=== PATIENT | female | born 1960 | race Hispanic/Latino ===

== ENCOUNTER → 2024-06-02 | Outpatient (CLI) | payer MEDICARE, OTHER ==
[2024-06-02 12:24] LABS: BASOPHILS # (AUTO) 0.05 K/uL (0.00-0.20); BASOPHILS % (AUTO) 0.9 % (0.0-5.0); EOSINOPHILS % (AUTO) 1.8 % (0.0-8.0); HEMATOCRIT 37.5 % (36-48); IMMATURE GRANULOCYTE ABSOLUTE 0.02 K/uL (0-1); LYMPHOCYTES # (AUTO) 1.9 K/uL (1.0-4.8); MEAN CORPUSCULAR HEMOGLOBIN 29.9 pg (27.0-33.0); MEAN CORPUSCULAR HGB CONC 32.8 g/dL (32.0-36.0); MEAN CORPUSCULAR VOLUME 91.2 fL (79-99); MONOCYTES # (AUTO) 0.3 K/uL (0.1-1.0); MONOCYTES % (AUTO) 5.8 % (3.0-13.0); NEUTROPHILS # (AUTO) 3.3 K/uL (1.8-7.7); NEUTROPHILS % (AUTO) 57.1 % (40.0-77.0); PLATELET COUNT (AUTO) 226 K/uL (130-400); RED BLOOD CELL COUNT(AUTO) 4.11 MIL/uL (4.00-5.50); WHITE BLOOD COUNT (AUTO) 5.7 K/uL (4.8-10.8)
[2024-06-02 12:34] LABS: INR 0.99 (0.85-1.15); PROTHROMBIN TIME 10.7 SEC (9.6-11.6)
[2024-06-02 12:35] LABS: PARTIAL THROMBOPLASTIN TIME 29.9 SEC (26.3-35.5)
[2024-06-02 12:36] LABS: CREATININE 0.6 mg/dL (0.5-1.0); POTASSIUM 4.2 mmol/L (3.5-5.1)
== END | disposition home or self-care (01) ==
LOC: RAH 11:47
PROVIDERS: ATTEND Family Medicine
DX: Z01.818 Encounter for other preprocedural examination (principal); E78.00 Pure hypercholesterolemia, unspecified; E66.09 Other obesity due to excess calories; M20.11 Hallux valgus (acquired), right foot; I70.0 Atherosclerosis of aorta; M47.815 Spondylosis without myelopathy or radiculopathy, thoracolumbar region
CPT/HCPCS: 36415; 71046; 80048; 85025; 85610; 85730

== ENCOUNTER 2024-06-22 05:51 | Day surgery (SDC) | payer MEDICARE, OTHER ==
[2024-06-20 14:03] VITALS: BP 154/77; PULSE 67; RESP 15; TEMP 97.4
[2024-06-22] VITALS (18 sets, daily range): BP systolic 109–158; BP diastolic 75–99; PULSE 63–85; RESP 10–16; TEMP 96.8–97.8
[~2024-06-22] VITALS: Ht 162.6 cm; Wt 69.9 kg
[~2024-06-22 05:51] MED LIST: IBUP-2784 PO; MAGN400C PO; VITAMIN D PO
[2024-06-22] MEDS: LACTATED RINGERS 1000ML 1,000 ML IV ONE (06:22)
[2024-06-22] MEDS ORDERED: BUPIvacaine/PF 0.25% 30ML VIAL IJ ONE (06:44)
[2024-06-22] MEDS ORDERED: MIDAZOLAM HCL 1 MG/ML 2ML VIAL ONE (06:48)
[2024-06-22] MEDS ORDERED: rocuRONium bROMide 10MG/1ML 5ML VL ONE (06:48)
[2024-06-22] MEDS ORDERED: proPOFol 10 MG/ML 20ML VIAL IV ONE (06:48)
[2024-06-22] MEDS ORDERED: FENTanyl CITRate PF 50 MCG/1 ML 2ML VIAL ONE ×2 (06:48→07:36)
[2024-06-22] MEDS: VANCOMYCIN 1G VIAL IVPB ONE (07:10)
[2024-06-22] MEDS ORDERED: VANCOMYCIN 1G/250ML KIT 250 ML IV ONE (07:22)
[2024-06-22] MEDS ORDERED: ondanSETRON 4MG INJ ONE (07:32)
[2024-06-22] MEDS ORDERED: GLYCOPYRROLATE 0.2 MG/ML 5 ML VIAL ONE (07:40)
[2024-06-22] MEDS ORDERED: NEOSTIGMINE METHYLSULFATE 1MG/ML IV ONE (07:40)
[2024-06-22] MEDS ORDERED: phenylEPHRINE HCL 10 MG/ML 1ML VIAL IV ONE (07:54)
[2024-06-22] MEDS: MEPERIDINE-PF 25 MG/ML SYG ONE (09:30)
--- NOTE | 2024-06-22 09:37 | OP ---
Operative Note: DATE OF PROCEDURE: 06/22/24 SURGEON: BEN MYERS DPM DERMATOLOGIST AND DERMATOPATHOLOGIST: Estrella ANESTHESIA: General PREOPERATIVE DIAGNOSIS: Hallux valgus right foot POSTOPERATIVE DIAGNOSIS: Same Findings: Deformity reduction achieved PROCEDURE: Correction of hallux valgus deformity with tarsometatarsal joint arthrodesis ESTIMATED BLOOD LOSS: Minimal INDICATIONS: Positive valgus deformity is becoming painful and did not respond to conservative measures Injectables: 20 cc of 0.25% Marcaine plain Specimen: None Materials: [employer] set 3.5 mm cortical screws and a4 hole plate, 3-0 Vicryl, 4-0 Vicryl, 4 Monocryl Hemostasis: Pneumatic thigh tourniquet at 275 mm Hg for 90 minutes DESCRIPTION OF PROCEDURE: The patient was brought into the operating room and placed on table in a supine position and general anesthesia was induced. Pneumonic thigh tourniquet was placed with adequate padding. Time-out was called with all the staff in the room to identify the patient procedure and procedure site. Patient's right lower extremity was prepped and draped in usual aseptic manner, exsanguinated utilizing Esmarch bandage, and pneumatic thigh tourniquet was inflated at 275 mm Hg. A curvilinear incision was made from the tarsometatarsal joint to 1st metatarsophalangeal joint. Incision was deepened through subcutaneous tissue layer care being taken to retract and protect all the vital neurovascular structures. Medial dorsal cutaneous nerve was never encountered. Blunt d issection was carried down to the 1st MPJ level laterally to identified the conjoined tendon of the abductor hallucis which was released from the proximal phalanx. Fibular sesamoid ligament was also released to complete the lateral release. The attention was directed to tarsometatarsal joint. Extensor tendon was retracted medially and periosteal layer was longitudinally incised and reflected medially and laterally to expose the 1st tarsometatarsal joint. Utilizing the alignment correction jig the joint was distracted and joint was prepped utilizing a saw to resect the base of the 1st metatarsal and distal surface of the medial cuneiform the surgical the wound was irrigated and the 1st metatarsal was realigned utilizing the jig to anatomical position to reduce the hallux valgus and met primus varus deformity. The corrected deformity was then stabilize and fixated utilizing combination of 4 hole plate and 3.5 mm cortical screws. The alignment of the corrected deformity and placement of the internal fixation devices were confirmed under fluoroscopy in multiple views. The surgical wound was irrigated aggressively utilizing copious amounts of normal sterile saline with a pressure. Periosteal layer was reapproximated utilizing 3-0 Vicryl. Subcutaneous tissue layer was reapproximated utilizing 4 0 Vicryl and skin was reapproximated utilizing 4-0 Monocryl. The incision was reinforced with the Steri-Strips. Pneumonic thigh tourniquet was deflated. Hallux revascularized. Sterile dressing followed by Lyons compression jig dressing was applied. Patient tolerated the procedure and anesthesia well. BEN MYERS DPM Jun 22, 2024 09:37
--- NOTE | 2024-06-22 10:30 | NUR ---
DRESSING: BULKY DRESSING TO RIGHT FOOT DRY/INTACT. ICE BAG IN PLACE, CAST SHOE ON. ELEVATED RT FOOT ABOVE HEART LEVEL.
--- NOTE | 2024-06-22 11:00 | NUR ---
Order received and patient was evaluated. Patient reported feeling dizzy and light headed limiting progress with patient. She was able to walk to the bathroom to void. Daughter present and was also instructed on proper use of crutches with heel PWB to RLE. Patient to be discharged to daughter. Addendum: 06/22/24 at 1213 by QUYEN HAYDEN PT Amended: Links added.
[2024-06-22] MEDS: ondanSETRON 4MG INJ IVP SCH (11:25)
--- NOTE | 2024-06-22 11:45 | NUR ---
DRESSING: ROSELIA BULKY DRESSING TO RT FOOT REMAINED DRY/INTACT WITH CAST SHOE IN PLACE AND ICE BAG.
--- NOTE | 2024-06-22 13:39 | HMCIMG ---
FOOT COMP 3+VWS RT REASON: ARTHRODESIS 1ST METATARSAL RT FOOT TECHNIQUE: 7 surgical spot views were obtained. These document right first metatarsal arthrodesis procedure. Fluoroscopy time was 60 minutes. IMPRESSION: 1. Documentation of right first toe arthrodesis procedure.
== END 2024-06-22 11:45 | disposition home or self-care (01) ==
LOC: DAH 05:51 → EDSTATUS 14:00
PROVIDERS: ATTEND Podiatrist
DX: M20.11 Hallux valgus (acquired), right foot (principal); Z90.710 Acquired absence of both cervix and uterus; Z88.8 Allergy status to other drugs, medicaments and biological substances; Z88.1 Allergy status to other antibiotic agents; Z98.890 Other specified postprocedural states; Z79.899 Other long term (current) drug therapy
CPT/HCPCS: 28297; 97161; 73630; 97116; 97530; A6260; C1713 ×6; A4663; J7030; A4649 ×2; J7120; J3370 ×2; J3010 ×2; J0665 ×2; J3490 ×2; J2250; J2704; J2405 ×2; J2710; J2175; J2371; A4930 ×2; A4215; A4223; A4222; A4221; A6450; A4600

== ENCOUNTER → 2025-04-10 | Outpatient (CLI) | payer MEDICARE, OTHER ==
--- NOTE | 2025-04-11 15:52 | HMCIMG ---
DIGITAL BILATERAL SCREENING MAMMOGRAM Technique: The digital mammographic examination of both breasts in craniocaudal and mediolateral oblique views along with CAD was obtained. History: This is a 64 years year-old female 2, para2 Ab0. Patient has maternal grandmother with family history of breast cancer. Patient has no complaint Reference:Prior mammogram from 02/04/2024, 07/10/2020 06/28/2019 are available.. Breast composition: Breast composition C: The breasts are heterogeneously dense, which may obscure small masses. Finding: The digital mammographic examination of both breasts in craniocaudal and mediolateral oblique view along with CAD demonstrates both breasts to be moderately heterogeneously nodular dense due to fibroglandular stromal elements.. There is no evidence of any dendritic mass, cluster microcalcification or architectural distortion. The retromammary fat appears to be normal. IMPRESSION: Unchanged from prior mammography. NO RADIOGRAPHIC EVIDENCE OF MALIGNANT CHANGES. WE WOULD RECOMMEND ANNUAL FOLLOW UP WITH TOMOSYNTHESIS UNLESS OTHERWISE CLINICALLY INDICATED. FINAL ASSESSMENT: ACR: BI-RAD- 2. Benign: Also a negative assessment; finding(s) benign abnormalities. Management: Routine mammography screening. Likelihood of Cancer: Essentially 0% likelihood of malignancy. NOTE: IF A WORK-UP OF THIS PATIENT LEADS TO A BIOPSY, PLEASE FORWARD A COPY OF THE PATHOLOGY REPORT TO OUR OFFICE REQUIRED BY [employer] MAY 09, 1994. A NEGATIVE MAMMOGRAM SHOULD NOT PRECLUDE BIOPSY OF A CLINICALLY PALPABLE SUSPICIOUS MASS, 10% OF BREAST CANCERS ARE MAMMOGRAPHICALLY OCCULT. THIS MAMMOGRAPHY FACILITY IS FULLY ACCREDITED BY THE FOOD AND DRUG ADMINISTRATION (FDA). THANK YOU FOR THIS REFERRAL.
== END | disposition home or self-care (01) ==
LOC: RAH 08:15
PROVIDERS: ATTEND Family Medicine
DX: Z12.31 Encounter for screening mammogram for malignant neoplasm of breast (principal)
CPT/HCPCS: 77067

== ENCOUNTER → 2025-06-07 | Outpatient (CLI) | payer MEDICARE, OTHER ==
--- NOTE | 2025-06-07 22:45 | HMCIMG ---
EXAM: CHEST RADIOGRAPH, 1 VIEW Technique: Single frontal view of the chest. Clinical Information: Pre-operative assessment. Findings: Lungs and large airways: Clear without focal air-space consolidation; symmetric aeration. Pleura: No pleural effusion or pneumothorax. Heart and mediastinum: Cardiomediastinal silhouette within normal size limits. Bones/joints: No acute osseous abnormality. Upper abdomen: No subdiaphragmatic free air.IMPRESSION: 1. No acute cardiopulmonary findings. /[place]
== END | disposition home or self-care (01) ==
LOC: RAH 10:20
PROVIDERS: ATTEND Family Medicine
DX: Z01.818 Encounter for other preprocedural examination (principal); M20.12 Hallux valgus (acquired), left foot
CPT/HCPCS: 71045

== ENCOUNTER 2025-06-27 06:05 | Day surgery (SDC) | payer MEDICARE, OTHER ==
[2025-06-26 09:22] VITALS: BP 139/77; PULSE 71; RESP 18; TEMP 98.1
[2025-06-26 09:54] LABS: INR 0.96 (0.85-1.15)
[~2025-06-27] VITALS: Ht 162.6 cm; Wt 72.8 kg
[2025-06-27] VITALS (14 sets, daily range): BP systolic 106–138; BP diastolic 64–89; PULSE 79–91; RESP 14–16; TEMP 97.3–97.7
[2025-06-27] MEDS: LIDOCAINE 1%-EPI 1:100,000 20 ML VIAL IJ ONE
[~2025-06-27 06:05] MED LIST changes: +CHOL500045 PO; -IBUP-2784 PO; -VITAMIN D PO
[2025-06-27] MEDS ORDERED: LIDOCAINE HCL 1% 20 ML VIAL ONE (06:35)
[2025-06-27] MEDS ORDERED: LIDOCAINE PF 100MG/5ML (2%) SYRINGE 5ML ONE (06:43)
[2025-06-27] MEDS ORDERED: MIDAZOLAM HCL 1 MG/ML 2ML VIAL ONE (06:43)
[2025-06-27] MEDS: LACTATED RINGERS 1000ML 1,000 ML IV ONE (07:47)
[2025-06-27] MEDS ORDERED: PROMETHAZINE HCL 25 MG/ML 1ML AMPULE IM PRN (08:00)
--- NOTE | 2025-06-27 09:13 | OP ---
Operative Note: DATE OF PROCEDURE: 06/27/25 SURGEON: BEN MYERS DPM LEATHER WHITENER: None ANESTHESIA: General PREOPERATIVE DIAGNOSIS: 1. Hallux valgus left foot 2. Met primus varus left foot POSTOPERATIVE DIAGNOSIS: Same Findings: Anatomical reduction was achieved PROCEDURE: Lapidus tarsometatarsal joint arthrodesis left foot with MPJ kerri ncing ESTIMATED BLOOD LOSS: Minimal INDICATIONS: Patient had the bunion deformity that is painful the did not respond to the conservative measures, now requesting surgical option Injectables: 20 cc of 0.5% Marcaine plain Specimen: None Materials: [employer] [place] with 2.7 mm cortical screws and 3.5 mm cortical and locking cortical screws with a 6 hole plate 3-0 Vicryl, 4-0 Vicryl, 4-0 nylon [place]ostasis[place] [address] [place] Hg DESCRIPTION OF PROCEDURE: Patient was brought into the operating room and placed on table in a supine position and general anesthesia was induced. Time-out was called with all the staff in the room to identify the patient, procedure and procedure site. The patient's left lower extremity was prepped and draped in usual aseptic manner, exsanguinated utilizing Esmarch bandage and pneumonic thigh tourniquet was inflated at 275 mm Hg. Curvilinear incision was made from the tarsometatarsal joint of the 1st metatarsophalangeal joint. The incision was deepened through subcutaneous tissue layer, care being taken to retract and protect all the vital neurovascular structures. Small bleeders were coagulated. Blunt dissection was carried down the lateral aspect of the 1st MPJ were fibular sesamoidal ligament was released and the conjoined tendon of the abductor hallucis tendon was released from the proximal phalanx to free up the sesamoid c omplex. Linear longitudinal incision was made over the capsular layer of the tarsometatarsal joint and the layer was reflected medially and laterally to expose the 1st tarsometatarsal joint. Alignment jig was placed over the tarsometatarsal joint and over the 2nd metatarsal and the 1st metatarsal. Using a joint jig the tarsometatarsal joint was distracted and the joint was prepped with a osteotomies oriented to reduce the hallux valgus and met primus varus deformity. Utilizing alignment jig that the hallux valgus deformity was reduced along with the med primus varus deformity and the joint was compressed utilizing a jig. Temporary fixation was achieved utilizing the 1.6 mm K-wires and permanent fixation achieved with a 6 hole locking plate placed in the dorsal medial aspect of the tarsometatarsal joint. For the inter cuneiform instability inner frag screw was placed across the bases of the 1st and 2nd metatarsal and the inter cuneiform joint. The alignment jig was removed and the C-arm in multiple views confirmed the alignment of the corrected deformity and placement of the internal fixation devices. Medial aspect of the 1st metatarsal head was exposed with a linear longitudinal incision over the 1st MPJ and the medial prominence was resected down to the anatomical size. It was noted that the medial 1/3 of the 1st metatarsal head was the degenerated with missing cartilage. The surgical wound was irrigated aggressively utilizing a copious amounts of normal sterile saline with a pressure. The capsular layers were reapproximated utilizing 3-0 Vicryl, subcutaneous tissue layer via 4-0 Vicryl and skin via 4-0 nylon. Above injectable was utilized to obtain the postoperative block and the surgical wound was dressed with dry sterile dressing followed by Lyons compression dressing. Patient tolerated the procedure and anesthesia well. BEN MYERS DPM Jun 27, 2025 09:13
--- NOTE | 2025-06-27 09:54 | NUR ---
POST-SURGICAL CAM BOOT TO LEFT FOOT. PATIENT ABLE TO WIGGLE TOES. ROSELIA WRAP TO FOOT/LEG. NO ACTIVE BLEEDING OR DRAINAGE NOTED. NO REDNESS OR SWELLING NOTED. DRESSING DRY AND INTACT.
--- NOTE | 2025-06-29 13:46 | HMCIMG ---
Fluoroscopy is utilized for the procedure. The total fluoroscopy time is 00:36.4 (mm:ss.d). The total dose area product is 0.2767 (Gycm2). The interpreting radiologist was not present during the procedure. /[place]
== END 2025-06-27 10:54 | disposition home or self-care (01) ==
LOC: DAH 06:05
PROVIDERS: ATTEND Podiatrist
DX: M20.12 Hallux valgus (acquired), left foot (principal); M21.612 Bunion of left foot; E66.9 Obesity, unspecified; Z68.27 Body mass index [BMI] 27.0-27.9, adult; Z90.710 Acquired absence of both cervix and uterus; Z79.01 Long term (current) use of anticoagulants; Z83.3 Family history of diabetes mellitus; Z88.2 Allergy status to sulfonamides; Z88.1 Allergy status to other antibiotic agents; Z79.899 Other long term (current) drug therapy
CPT/HCPCS: 85610; 85730; 36415; 28297; 73630; A4223 ×2; A6260; C1713 ×8; A4663; A4649 ×2; J7120; J3010 ×3; J1100; J0665 ×2; J2003; J3490 ×2; J2250; J2704; J2405; J0690 ×2; A4930; A4215; A4213; A4222; A4221; 76000

== ENCOUNTER 2025-08-03 20:10 | Emergency (ER) | payer MEDICARE, OTHER ==
[~2025-08-03] VITALS: Ht 167.6 cm; Wt 71.7 kg
--- NOTE | 2025-08-03 21:07 | ERN ---
General Chief Complaint: Headache Stated Complaint: HEADACHE, HYPRETENSION Time Seen by MD: 20:27 Source: patient History of Present Illness Initial Comments Patient is a 64-year-old female coming in complaining of the headache. Per patient she had the right frontal headache earlier today decided to come in for further evaluation. Long with the as he states that he had has had recent surgery in her left foot. Allergies: Coded Allergies: Sulfa (Sulfonamide Antibiotics) (Unverified Allergy, Unknown, 06/20/24) acetaminophen (Unverified Allergy, Unknown, 06/20/24) ceftriaxone (Unverified Allergy, Unknown, 06/20/24) tramadol (Unverified Allergy, Unknown, 08/03/25) Home Meds Reported Medications Cholecalciferol (Vitamin D3) (Vitamin D3) 125 Mcg (5000 Unit) Tablet, 125 MCG PO DAILY, TAB 06/26/25 Magnesium Oxide (Magnesium) 400 Mg Magnesium Capsule, 400 MG PO DAILY, CAP 06/26/25 Past Medical History Past Medical History: No Pertinent History Past Surgical History: Hysterectomy, Other Surgical History Other: LEFT FOOT, RT FOOT, ROS Dictation CONSTITUTIONAL: No chills, no fever, no weakness, no diaphoresis, no malaise. HEAD/FACE: No signs of trauma. EENT: No eye pain, no blurred vision, no tearing, no double vision, no ear pain, no ear discharge, no nose pain, no nasal congestion, no throat pain, no throat swelling, no mouth pain. RESPIRATORY: No cough, no orthopnea, no SOB, no stridor, no wheezing. CARDIOVASCULAR: No chest pain, no edema, no palpitations, no syncope. GASTROINTESTINAL/ABDOMINAL: No abdominal pain, no constipation, no diarrhea, no nausea, no vomiting. GENITOURINARY: No abnormal discharge, no dysuria, no frequent urination, no hematuria. No complaints of pain in the genitals. MUSCULOSKELETAL: No back pain, no gout, no joint pain, no joint swelling, no muscle pain, no muscle stiffness, no neck pain. INTEGUMENTARY: No change in color, no change in hair/nails, no dryness, no lesion, no lumps, no rash. NEUROLOGICAL/PSYCH: No anxiety, not depressed, no emotional problem, no headache, no numbness, no pre-existing deficit, no history of seizures, no t remors, no weakness. HEMATOLOGIC/LYMPHATIC: Not anemic, no history of blood clots, no apparent bleeding, no bruising, glands not swollen. All Systems Negative, Except as Noted. Physical Exam Physical Exam Dictation VITAL SIGNS: Reviewed. GENERAL APPEARANCE: Alert, oriented x3, no acute distress, obese. HEAD AND FACE: Non-traumatic. EYES: PERRL, pink conjunctivas, eyelid no trauma, anterior chamber clear. EARS: Pinnas intact and no signs of trauma or erythema. Ear canals clear and no discharge. TMs no erythema. NOSE: No discharge, no bleeding. OROPHARYNX: Mouth normal, teeth no caries, tongue pink. Pharynx clear, no erythema. Tonsils no exudates, no abscesses noted. Mucous membrane moist. NECK: Supple, non-tender, no thyromegaly, no masses, no JVD, no bruits. BREAST: Deferred. CHEST: No tenderness, no crepitus, no paradoxical movement, no retractions. LUNGS: Clear, well-ventilated, symmetric, no rales, no wheezing, no rhonchi, no stridor, good breath sounds bilaterally. HEART: Regular rate, regular rhythm, no murmur, no gallops. VASCULAR: No peripheral edema. ABDOMEN: Soft, positive bowel sounds, nondistended, no guarding, nontender, no rebound, no masses no hepatomegaly, no splenomegaly, no Geronimo's sign, no hernias. RECTAL: Deferred. GENITAL: Deferred. NEUROLOGICAL: Normal speech, gross motor function intact, gross sensory function intact. MUSCULOSKELETAL: Neck nontender, full range of motion, back nontender, full range of motion. EXTREMITIES: Nontender, full range of motion. SKIN: Color pink, dry, no turgor, no rash, no lacerations, no abrasions, no contusions. LYMPHATICS: Deferred. Results Laboratory and Microbiology Lab and Micro Result Laboratory Tests Test 08/03/25 21:02 08/03/25 21:32 White Blood Count 8.0 K/uL (4.8-10.8) Red Blood Count 4.21 MIL/uL (4.00-5.50) Hemoglobin 12.7 g/dL (12.0-16.0) Hematocrit 38.1 % (36-48) Mean Corpuscular Volume 90.5 fL (79-99) Mean Corpuscular Hemoglobin 30.2 pg (27.0-33.0) Mean Corpuscular Hemoglobin Concent 33.3 g/dL (32.0-36.0) Red Cell Distribution Width 12.2 % (11.0-15.5) Platelet Count 265 K/uL (130-400) Mean Platelet Volume 9.5 fL (7.5-10.5) Nucleated Red Blood Cells 0.0 % (0.0-0.19) Sodium Level 138 mmol/L (136-145) Potassium Level 3.4 mmol/L (3.5-5.1) L Chloride Level 104 mmol/L (101-111) Carbon Dioxide Level 27 mmol/L (21-32) Blood Urea Nitrogen 10 mg/dL (7-18) Creatinine 0.6 mg/dL (0.5-1.0) Glomerular Filtration Rate Calc 99 mL/min (>90) Random Glucose 107 mg/dL (70-105) H Total Calcium 8.9 mg/dL (8.5-10.1) Influenza Type A Antigen Negative For Type A Influenza Type B Antigen Negative For Type B SARS-CoV-2, RNA, NAAT NEGATIVE SARS CoV-2 Group A Streptococcus Rapid negative (NEGATIVE) Labs Reviewed?: Yes EKG/XRAY/US/CT/[place] [address] IMAGING REPORT Signed PATIENT: SNEAH WILLIS MR#: [id number] : 1960 SEX: F AGE: 64 LOCATION: ED ORDER 56 STATUS: REG REPORT#: [id number] SERVICE 56 REASON: headache ORDERING PHYSICIAN: YEE CARMICHAEL MD PROCEDURE: HEAD WO - CT HEAD/BRAIN W/O CONTRAST EXAM: CT Head Without IV contrast. CLINICAL HISTORY: Headache. TECHNIQUE: Axial computed tomography images of the head/brain without intravenous contrast. COMPARISON: None provided. FINDINGS: BRAIN: No evidence of acute hemorrhage. No mass lesion. No CT evidence for acute territorial infarct. No midline shift or extra-axial collections. Mild age-related volume loss is demonstrated in the form of prominent ventricles, sulci, and cisterns. Small hypodensity in the left capsuloganglionic region, suggesting a small old infarct. VENTRICLES: No hydrocephalus. ORBITS: The orbits are unremarkable. SINUSES AND MASTOIDS: Small air-fluid level in the left maxillary sinus. The remaining paranasal sinuses and mastoid air cells are clear. BONES: No fracture. SOFT TISSUES: Unremarkable. IMPRESSION: No acute intracranial abnormality. Recommended MRI of the brain for further evaluation if clinically warranted. /[place] DICTATED BY: EDDY LARA Jr., MD DATE: 08/04/25148 ELECTRONICALLY SIGNED BY: EDDY LARA Jr., MD DATE: 08/04/25148 [facility] MDM: Differential diagnosis: Sinus symptoms, headache, Rationale: Tests considered and ordered secondary to shared decision making include: Previous outside records reviewed: Old ER visits. Risk of complication and/or morbidity or mortality of patient management: None Medications-Per medication reconciliation Need for hospitalization: Patient does not meet criteria for hospitalization. Need for emergency major/minor surgery: No Is a 64-year-old female coming in of right frontal headache. Laboratory workup which includes CT of the head did not disclose any acute findings. Patient we will be discharged with a diagnosis of sinusitis antibiotics will be provided. I did advised her appropriate follow up PCP for ongoing evaluation and management. ED Course Orders Procedure Category Date Status Time Cbc Without LAB 08/03/25 Complete Differential 20:54 Basic Metabolic Panel LAB 08/03/25 Complete 20:54 Ibuprofen 600 Mg PHA 08/03/25 Complete Tablet (Motrin) 21:00 Influenza Type A & B, LAB 08/03/25 Complete Rapid 20:54 Covid Rna Naat LAB 08/03/25 Complete 20:54 Rapid (Group A Strep) LAB 08/03/25 Complete 20:54 0.9%Nacl 1000ml (Ns PHA 08/03/25 Complete 1000ml) 21:30 Potassium Bicarb/Cit PHA 08/03/25 Complete Ac 25meq (K-Lyte Ta 23:00 Ct Head/Brain W/O CT 08/03/25 Resulted Contrast 22:57 Current Medications Medications (Trade) Dose Ordered Sig/Kristina Route PRN Reason Start Time Stop Time Status Last Admin Dose Admin Ibuprofen (moTRIN) 600 mg ONCE ONCE PO 08/03/25 21:00 08/03/25 21:01 DC 08/03/25 21:25 Potassium Bicarbonate (K-Lyte Tablet Eff 25 Meq Tablet.eff) 25 meq ONCE ONCE PO 08/03/25 23:00 08/03/25 23:01 DC 08/03/25 22:56 Sodium Chloride 1,000 ml @ 0 mls/hr ONCE ONCE IV 08/03/25 21:30 08/03/25 21:31 DC 08/03/25 21:25 Vital Signs Date Time Temp Pulse Resp B/P (MAP) Pulse Ox O2 Delivery O2 Flow Rate FiO2 08/03/25 23:02 98.8 78 19 163/95 99 Room Air* 0 21 08/03/25 21:26 98.8 83 19 172/105 100 Room Air* 0 21 08/03/25 20:27 97.5 86 18 157/100 98 Room Air DX & DISP Disposition: Discharge Departure Impression: Primary Impression: Sinusitis Condition: Stable Scripts Naproxen (Naproxen) 500 Mg Tablet 1 TAB PO BID for pain for 7 Days, #14 TAB 0 Refills Prov: YEE CARMICHAEL MD 08/04/25 Fluticasone Propionate (Flonase Nasal [place]) 50 Mcg/Actuation [place] 2 SPRAY NS DAILY, #16 GM 0 Refills Prov: YEE CARMICHAEL MD 08/04/25 Clindamycin HCl (Clindamycin HCl) 300 Mg Capsule 1 CAP PO TID for 10 Days, #30 CAP 0 Refills Prov: YEE CARMICHAEL MD 08/04/25 Additional Instructions: FOLLOW-UP WITH PRIMARY CARE PROVIDER IN 1 TO 2 DAYS. TAKE MEDICATIONS DIRECTED HERE IN THE EMERGENCY ROOM. OKAY TO CONTINUE HOME MEDICATIONS UNLESS OTHERWISE DISCUSSED DURING YOUR VISIT IN THE EMERGENCY ROOM TODAY. RETURN TO YOUR NEAREST EMERGENCY ROOM IF SYMPTOMS WORSEN OR IF THERE IS NO IMPROVEMENT. CALL 911 IF YOU NEED IMMEDIATE ASSISTANCE. TAKE TYLENOL [id number] NEEDED AND IF NO CONTRAINDICATIONS ARE PRESENT. INCREASE ORAL HYDRATION. A WOUND CULTURE OR URINE CULTURE WAS ORDERED HERE IN THE EMERGENCY ROOM DEPARTMENT PLEASE FOLLOW-UP WITH PRIMARY CARE PROVIDER AND ADVISE THEM TO GET REPORTS FROM OUR FACILITY. IF YOU HAD ANY ROSELIA WRAP/SPLINTS THAT WERE APPLIED HERE, PLEASE DO NOT REMOVE THEM UNTIL YOU SEE YOUR PRIMARY CARE OR SPECIALTY. Referrals: Referrals: MARIA INES CRISTINA MD (PCP) Time of Disposition: 01:14 YEE CARMICHAEL MD Aug 03, 2025 21:07
[2025-08-03] MEDS: 0.9%NACL 1000ML 1,000 ML IV ONE (21:25)
[2025-08-03 21:29] LABS: NUCLEATED RED BLOOD CELLS 0.0 % (0.0-0.19); PLATELET COUNT (AUTO) 265.0 K/uL (130-400); RED BLOOD CELL COUNT(AUTO) 4.21 MIL/uL (4.00-5.50); RED CELL DISTRIBUTION WIDTH 12.2 % (11.0-15.5); WHITE BLOOD COUNT (AUTO) 8.0 K/uL (4.8-10.8)
[2025-08-03 21:42] LABS: CREATININE 0.6 mg/dL (0.5-1.0); GLOMERULAR FILTR. RATE CALC 99.0 mL/min (>90); GLUCOSE,RANDOM 107.0 mg/dL (70-105); SODIUM SERUM 138.0 mmol/L (136-145); UREA NITROGEN, BLOOD 10.0 mg/dL (7-18)
[2025-08-03 22:44] LABS: RAPID GROUP A STREP negative (NEGATIVE)
[2025-08-03 22:46] LABS: SARS-CoV-2, RNA, NAAT NEGATIVE SARS CoV-2 (NEGATIVE)
[2025-08-03 22:51] LABS: INFLUENZA TYPE A Negative For Type A (NEGATIVE); INFLUENZA TYPE B Negative For Type B (NEGATIVE)
--- NOTE | 2025-08-04 00:50 | HMCIMG ---
EXAM: CT Head Without IV contrast. CLINICAL HISTORY: Headache. TECHNIQUE: Axial computed tomography images of the head/brain without intravenous contrast. COMPARISON: None provided. FINDINGS: BRAIN: No evidence of acute hemorrhage. No mass lesion. No CT evidence for acute territorial infarct. No midline shift or extra-axial collections. Mild age-related volume loss is demonstrated in the form of prominent ventricles, sulci, and cisterns. Small hypodensity in the left capsuloganglionic region, suggesting a small old infarct. VENTRICLES: No hydrocephalus. ORBITS: The orbits are unremarkable. SINUSES AND MASTOIDS: Small air-fluid level in the left maxillary sinus. The remaining paranasal sinuses and mastoid air cells are clear. BONES: No fracture. SOFT TISSUES: Unremarkable. IMPRESSION: No acute intracranial abnormality. Recommended MRI of the brain for further evaluation if clinically warranted. /[place]
[2025-08-04] MEDS ORDERED: CLIN-141 PO (01:15)
[2025-08-04] MEDS ORDERED: FLUT16H NS (01:15)
[2025-08-04] MEDS ORDERED: NAPR-1194 PO (01:15)
[2025-08-04 01:25] VITALS: BP 140/83; PULSE 76; RESP 19; TEMP 98.8; O2SAT 99
== END 2025-08-04 01:26 | disposition home or self-care (01) ==
LOC: EDH 20:10
DX: J32.9 Chronic sinusitis, unspecified (principal); Z88.2 Allergy status to sulfonamides; Z88.5 Allergy status to narcotic agent; Z88.1 Allergy status to other antibiotic agents; Z88.8 Allergy status to other drugs, medicaments and biological substances; Z79.899 Other long term (current) drug therapy; Z20.822 Contact with and (suspected) exposure to COVID-19; Z98.890 Other specified postprocedural states
CPT/HCPCS: 99284; 70450; 87635; 80048; 85027; 87880; 87804 ×2; 36415; J7030